=== PATIENT | male | born 1990 | race Caucasian/White ===

== ENCOUNTER 2022-04-28 19:24 | Emergency (ER) | payer OTHER ==
[~2022-04-28] VITALS: Ht 177.8 cm; Wt 90.7 kg
[2022-04-28 19:49] VITALS: BP 128/70
[2022-04-28] MEDS ORDERED: AMOX-430 PO (20:29)
--- NOTE | 2022-04-28 20:31 | NUR ---
Patient discharged to home in stable condition. Written and verbal after care instructions given. Patient verbalizes understanding of instruction. Pt ambulatory with a steady gait
== END 2022-04-28 20:31 | disposition home or self-care (01) ==
LOC: ER 19:27
DX: S61.052A Open bite of left thumb without damage to nail, initial encounter (principal); F41.9 Anxiety disorder, unspecified; W54.0XXA Bitten by dog, initial encounter; Y93.89 Activity, other specified; Y92.89 Other specified places as the place of occurrence of the external cause; Y99.8 Other external cause status

== ENCOUNTER 2025-06-07 17:42 | Emergency (ER) | payer OTHER ==
[~2025-06-07] VITALS: Ht 177.8 cm; Wt 105.7 kg
[~2025-06-07 17:42] MED LIST: AMOX-430 PO
[2025-06-07 18:02] VITALS: TEMP 98.7
[2025-06-07] MEDS ORDERED: dexaMETHasone SOD PHOSPHATE 1 ML ONE (18:32)
[2025-06-07] MEDS ORDERED: KETOROLAC TROMETHAMINE 15 MG/ML VIAL ONE (18:32)
[2025-06-07] MEDS: dexaMETHasone SOD PHOSPHATE 4 MG/ML VIAL IM ONE (18:40)
[2025-06-07] MEDS: KETOROLAC TROMETHAMINE 15 MG/ML VIAL IM ONE (18:40)
[2025-06-07] MEDS ORDERED: IBUP-1957 PO (19:17)
[2025-06-07] MEDS ORDERED: AMOX-430 PO (19:17)
[2025-06-07 20:08] VITALS: BP 129/75; O2SAT 96
== END 2025-06-07 20:08 | disposition home or self-care (01) ==
LOC: ER 17:45
DX: J36 Peritonsillar abscess (principal); R50.9 Fever, unspecified; F41.9 Anxiety disorder, unspecified
CPT/HCPCS: 99284; 96372; J1885; J1100